=== PATIENT | male | born 2000 | race Caucasian/White ===

== ENCOUNTER 2021-07-27 10:48 | Emergency (ER) | payer OTHER ==
[~2021-07-27] VITALS: Ht 165.1 cm; Wt 95.3 kg
[2021-07-27 11:08] VITALS: BP_SYST 145
[2021-07-27] MEDS ORDERED: MORPHINE 4 MG INJ. 4 MG/ML VIAL IVP ONE (11:30)
[2021-07-27] MEDS ORDERED: ONDANSETRON 4 MG ODT TAB PO ONE (11:30)
[2021-07-27] MEDS ORDERED: KETOROLAC TROMETHAMINE 30 MG VIAL IVP ONE (11:30)
[2021-07-27] MEDS ORDERED: NACL 0.9% 1,000 ML IV ONE (11:30)
[2021-07-27 11:48] LABS: BASOPHILS # (AUTO) 0.1 K/uL (0.0-0.2); BASOPHILS % (AUTO) 0.3 % (0.0-2.0); EOSINOPHILS % (AUTO) 0.1 % (0.0-4.0); HEMATOCRIT 44.8 % (36-54); HEMOGLOBIN 14.9 g/dL (14.0-18.0); LYMPHOCYTES # (AUTO) 1.2 K/uL (1.0-5.5); LYMPHOCYTES % (AUTO) 6.4 % (20.5-51.5); MEAN CORPUSCULAR HEMOGLOBIN 27 pg (27-31); MEAN CORPUSCULAR HGB CONC 33 % (32-36); MEAN CORPUSCULAR VOLUME 82 fL (79.0-98.0); MONOCYTES # (AUTO) 0.6 K/uL (0.0-1.0); MONOCYTES % (AUTO) 3.2 % (1.7-9.3); NEUTROPHILS # (AUTO) 16.4 K/uL (1.8-7.7); PLATELET COUNT (AUTO) 286 K/uL (130-430); RED BLOOD CELL COUNT(AUTO) 5.46 MIL/uL (4.2-6.2); RED CELL DISTRIBUTION WIDTH 14.1 % (9.0-15.0); WHITE BLOOD COUNT (AUTO) 18.2 K/uL (4.8-10.8)
[2021-07-27 11:50] LABS: CLARITY/URINE TURBID (CLEAR); COLOR,URINE YELLOW (YELLOW); PH,URINE 5.5 (5.0-8.0); PROTEIN URINE TRACE (NEGATIVE)
[2021-07-27 11:51] LABS: BILIRUBIN,URINE NEGATIVE (NEGATIVE); BLOOD, URINE 3+ (NEGATIVE); GLUCOSE,URINE NEGATIVE (NEGATIVE); KETONES,URINE NEGATIVE (NEGATIVE); LEUKOCYTE ESTERASE ,URINE NEGATIVE (NEGATIVE); NITRITE, URINE NEGATIVE (NEGATIVE)
[2021-07-27 12:09] LABS: RBC,URINE 20-50 /HPF (0-3)
[2021-07-27 12:09] LABS: CALCIUM 8.5 mg/dL (8.4-11.0); CREATININE 1.03 mg/dL (0.55-1.30); POTASSIUM 3.7 mmol/L (3.5-5.1)
[2021-07-27 12:10] LABS: BACTERIA,URINE FEW /HPF (None Seen); MUCUS,URINE 2+ /LPF (None Seen); WBC,URINE 0-3 /HPF (0-3)
[2021-07-27] MEDS ORDERED: ONDA-8 TL (13:22)
[2021-07-27] MEDS ORDERED: TAMS-11 PO (13:22)
[2021-07-27] MEDS ORDERED: HYDR-3921 PO (13:22)
[2021-07-27] MEDS ORDERED: IBUP-1969 PO (13:24)
[2021-07-27 14:00] VITALS: BP_SYST 129
== END 2021-07-27 14:00 | disposition home or self-care (01) ==
LOC: SED 10:48
DX: N23 Unspecified renal colic (principal); R31.9 Hematuria, unspecified; R11.2 Nausea with vomiting, unspecified
CPT/HCPCS: 36415; 76770; 80048; 81000; 85025; 96361; 96374; 96375; 99284; J1885; J2270; J7030; Q0162